=== PATIENT | male | born 1930 | race Caucasian/White ===

== ENCOUNTER 2017-05-05 16:59 | Inpatient (IN) | payer OTHER ==
[~2017-05-05] VITALS: Ht 177.8 cm; Wt 61.2 kg
--- NOTE | ~2017-05-05 | EKG ---
[address] [address] ELECTROCARDIOGRAM REPORT Name: RAJIRAFAELA Room #: 422-P DIS IN M.R.#: [id number] Admission: 05/05/17 Attend Phys: Joaquin Childs MD Discharge: 05/06/17 Date of : 30 Report #: [id number] THIS REPORT FOR: //name// [facility] ED Test Date: 2017-05-05 Test Time: 17:19:22 Pat Name: RAFAELA ALEGRIA Department: Room: 422 Gender: M [employer] Assistant: [place] : 1930 Requested By: Jordy Paredes Order Number: [id number] MD: To Flowers Measurements Intervals [place] Rate: 87 P: -9 NC: 204 QRS: 76 QRSD: 127 T: -32 QT: 379 QTc: 456 Interpretive Statements Sinus rhythm Right bundle branch block Electronically Signed On 05-06-2017 12:43:00 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
--- NOTE | ~2017-05-05 | 2DMMODE ---
[facility] [address] [place] [address] 2 D/M-MODE ECHOCARDIOGRAM Name: RAFAELA ALEGRIA DENISE Room #: 422-P [facility] IN M.R.#: [id number] Admission: 05/05/17 Attend Phys: Joaquin Childs MD Discharge: 05/06/17 Date of : 30 Date of Service: 05/06/17 1226 Report #: [id number] THIS REPORT FOR: //name// APPROVED REPORT Study performed: 05/06/2017 08:01:45 EXAM: Comprehensive 2D, Doppler, and color-flow Echocardiogram Patient Location: Bedside Room #: 422 Status: on-call BSA: 1.77 HR: 24 bpm BP: 116/65 mmHg Rhythm: Irregular. Frequent PVC's Other Information Study Quality: Good Indications Elevated BNP, short of breath, chest pain. Hx: COPD 2D Dimensions RVDd: 32.65 mm LVEF(%): 55.73 (>50%) IVSd: 11.75 (7-11mm) LVOT Diam: 20.01 (18-24mm) LVDd: 34.23 mm PWd: 11.95 (7-11mm) Ascending Ao: 30.40 (22-36mm) LVDs: 24.56 (25-40mm) Aortic Root: 33.01 mm Orourke's LVEF: 55.73 % Volumes Left Atrial Volume (Systole) Single Plane 4CH: 36.07 mL Single Plane 2CH: 45.55 mL LA ESV Index: 24.00 mL/m2 Aortic Valve AoV Peak Javan.: 1.38 m/s AO Peak Gr.: 7.60 mmHg LVOT Max P.22 mmHg LVOT Max V: 1.14 m/s LAKEISHA Vmax: 2.61 cm2 Mitral Valve E/A Ratio: 0.6 MV Decel. Time: 142.08 ms [facility] [place] [address] 2 D/M-MODE ECHOCARDIOGRAM Name: RAFAELA ALEGRIA Room #: 422-P [facility] IN .R.#: [id number] Admission: 05/05/17 Attend Phys: Joaquin Childs MD Discharge: 05/06/17 Date of : 30 Date of Service: 05/06/17 1226 Report #: [id number] MV E Max Javan.: 0.67 m/s MV A Javan.: 1.20 m/s MV PHT: 41.20 ms IVRT: 83.04 ms Pulmonary Valve PV Peak Javan.: 1.21 m/s PV Peak Gr.: 5.88 mmHg Tricuspid Valve TR Peak Javan.: 4.35 m/s TR Peak Gr.: 75.53 mmHg Left Ventricle The left ventricle is normal size. There is normal LV segmental wall motion. Mild concentric left ventricular hypertrophy. Left ventricular systolic function is normal. LVEF is 60-65%. Mild diastolic dysfunction is present (impaired relaxation pattern). Right Ventricle The right ventricle is normal size. The right ventricular systolic function is normal. Atria The left atrium size is normal. The right atrium size is normal. Aortic Valve The Aortic valve is mildly sclerotic. No aortic regurgitation is present. There is no aortic valvular stenosis. Mitral Valve Mitral valve leaflets are mildly thickened. Trace mitral regurgitation. Tricuspid Valve The tricuspid valve is normal in structure. Moderate tricuspid regurgitation. Severe pulmonary hypertension. Estimated PAP is 76mmHg plus the right atrial pressure. Pulmonic Valve The pulmonary valve is normal in structure. Mild pulmonic regurgitation. Great Vessels The aortic root is normal in size. The ascending aorta is normal in [facility] [address] [place] [address] 2 D/M-MODE ECHOCARDIOGRAM Name: RAFAELA ALEGRIA DENISE Room #: 422-P [facility] IN M.R.#: [id number] Admission: 05/05/17 Attend Phys: Joaquin Childs MD Discharge: 05/06/17 Date of : 30 Date of Service: 05/06/17 1226 Report #: [id number] size. IVC is not well visualized. Pericardium There is no pericardial effusion. <Conclusion> The left ventricle is normal size. Mild concentric left ventricular hypertrophy. Left ventricular systolic function is normal. LVEF is 60-65%. Mild diastolic dysfunction is present (impaired relaxation pattern). The right ventricle is normal size. The right ventricular systolic function is normal. The left atrium size is normal. The right atrium size is normal. The Aortic valve is mildly sclerotic. There is no aortic valvular stenosis. Mitral valve leaflets are mildly thickened. Trace mitral regurgitation. The tricuspid valve is normal in structure. Moderate tricuspid regurgitation. Severe pulmonary hypertension. Estimated PAP is 76mmHg plus the right atrial pressure. There is no pericardial effusion. <ELECTRONICALLY SIGNED> By: To Flowers MD 05/06/17 1226 122 122 To Flowers MD /INF
[~2017-05-05 16:59] MED LIST: HYDROCODONE-AP1 EAC6; PERCOCET 5-3251 EACH PO
[2017-05-05 17:11] VITALS: BP 148/118
[2017-05-05 18:04] LABS: HEMATOCRIT 43.1 % (42.0-52.0); HEMOGLOBIN 14.3 gm/dL (14.0-18.0); MCH 31.9 pg (26.0-34.0); MCHC 33.3 g/dL (28.0-37.0); MCV 95.8 fL (80.0-100.0); PLATELET COUNT 224 thou/uL (150-400); RDW 14.6 % (10.5-14.5); WBC 23.7 thou/uL (4.0-11.0)
[2017-05-05 18:05] LABS: MANUAL DIFF YES
[2017-05-05 18:12] LABS: ANION GAP 7 mmol/L (7-16); BUN 27 mg/dL (7-18); CHLORIDE 103 mmol/L (98-107); CO2 26 mmol/L (21-32); CREATININE 2.1 mg/dL (0.7-1.3); GLUCOSE 130 mg/dL (74-106); POTASSIUM 4.2 mmol/L (3.5-5.1); SODIUM 136 mmol/L (136-145)
[2017-05-05 18:21] LABS: ALBUMIN 3.7 g/dL (3.4-5.0); ALKALINE PHOSPHATASE 68 U/L (46-116); SGOT 12 U/L (15-37); SGPT 12 U/L (30-65); TOTAL BILIRUBIN 0.8 mg/dL (<0.1-1.0); TOTAL PROTEIN 7.2 g/dL (6.4-8.2); TROPONIN-I < 0.04 ng/mL (<0.06)
[2017-05-05 18:34] LABS: ABSOLUTE NEUTROPHILS 21.3 thou/uL (1.4-8.2); TOTAL CELL COUNT 100
[2017-05-05] MEDS ORDERED: DIOVAN 80 MG TA80 M1 PO (19:28)
[2017-05-05] MEDS ORDERED: ADVAIR HFA 230M12 GM INH (19:28)
[2017-05-05 19:56] VITALS: BP 144/53
[2017-05-05 20:47] VITALS: BP 144/53
[2017-05-05 21:50] VITALS: BP 150/59
[2017-05-06 02:44] LABS: HEMATOCRIT 41.2 % (42.0-52.0); HEMOGLOBIN 13.5 gm/dL (14.0-18.0); MCH 31.7 pg (26.0-34.0); MCHC 32.9 g/dL (28.0-37.0); MCV 96.4 fL (80.0-100.0); RBC 4.27 mil/uL (4.50-6.00); RDW 14.2 % (10.5-14.5); WBC 20.8 thou/uL (4.0-11.0)
[2017-05-06 03:31] LABS: ANION GAP 12 mmol/L (7-16); BUN 29 mg/dL (7-18); CALCIUM 8.7 mg/dL (8.5-10.1); CHLORIDE 105 mmol/L (98-107); CHOLESTEROL 162 mg/dL (<200); CO2 23 mmol/L (21-32); CREATININE 2.2 mg/dL (0.7-1.3); GLUCOSE 196 mg/dL (74-106); HDL CHOLESTEROL 53 mg/dL (>40); LDL CHOLESTEROL 101 mg/dL (<100); POTASSIUM 4.7 mmol/L (3.5-5.1); SODIUM 140 mmol/L (136-145); TC:HDL 3.1 Ratio (Not establshd); TRIGLYCERIDE 43 mg/dL (<150); TROPONIN-I < 0.04 ng/mL (<0.06); VLDL 9 mg/dL (<40)
[2017-05-06 03:42] LABS: SERUM ASSESSMENT Clear
[2017-05-06 04:30] VITALS: BP 116/65
[2017-05-06] MEDS ORDERED: LEVAQUIN 500 M500 M2 PO (09:21)
[2017-05-06] MEDS ORDERED: MEDROL DOSPAK21 TA1 PO (09:22)
[2017-05-06 09:33] VITALS: BP 116/65
== END 2017-05-06 09:50 | disposition left against medical advice (07) | DRG 871 ==
LOC: ER 16:59 → EROBS 18:44 → 4E 21:01
PROVIDERS: Nurse Practitioner Acute Care; Physician Assistant
DX: A41.9 Sepsis, unspecified organism (principal); J96.20 Acute and chronic respiratory failure, unspecified whether with hypoxia or hypercapnia; J18.9 Pneumonia, unspecified organism; J44.0 Chronic obstructive pulmonary disease with (acute) lower respiratory infection; I12.0 Hypertensive chronic kidney disease with stage 5 chronic kidney disease or end stage renal disease; J44.1 Chronic obstructive pulmonary disease with (acute) exacerbation; N18.9 Chronic kidney disease, unspecified; S91.302A Unspecified open wound, left foot, initial encounter; X58.XXXA Exposure to other specified factors, initial encounter; M10.9 Gout, unspecified; Z88.0 Allergy status to penicillin; Z90.89 Acquired absence of other organs; Z85.46 Personal history of malignant neoplasm of prostate; Z90.49 Acquired absence of other specified parts of digestive tract; Z82.49 Family history of ischemic heart disease and other diseases of the circulatory system; Z87.891 Personal history of nicotine dependence; Z28.21 Immunization not carried out because of patient refusal; Y93.89 Activity, other specified; Y92.89 Other specified places as the place of occurrence of the external cause; Y99.8 Other external cause status
CPT/HCPCS: 10183